=== PATIENT | female | born 1975 | race Hispanic/Latino ===

== ENCOUNTER 2016-06-02 06:47 | Emergency (ER) | payer OTHER ==
[2016-06-02 07:47] LABS: MEAN CORPUSCULAR HEMOGLOBIN 29.2 pg (27.0-33.0); MEAN CORPUSCULAR HGB CONC 33.7 g/dl (32.0-36.5); MEAN CORPUSCULAR VOLUME 86.5 fl (80.0-96.0); RED CELL DISTRIBUTION WIDTH 12.5 % (11.5-14.5); WHITE BLOOD COUNT 5.9 K/mm3 (4.0-10.0)
--- NOTE | 2016-06-02 08:41 | REP ---
Emergency first trimester OB sonography: History: Vaginal bleeding. Findings: Transvaginal and transabdominal scanning demonstrates a mildly enlarged uterus with overall dimensions of 11.3 x 5.7 x 6.4 cm. Endometrial echo is 1.3 cm thick. There is an irregular cystic area in the lower uterine segment endometrium adjacent to what appears to be a scar in the lower uterine segment. This may be an abnormal gestational sac. It measures 6 x 11 x 11 mm. It does not have an echogenic margin. There is no other evidence of intrauterine gestation. Neither ovary could be identified transabdominally or trans vaginally. No free fluid is seen in the cul-de-sac. Impression: Nonspecific sonographic findings. No definite intrauterine gestation. No adnexal mass or free fluid seen. Clinical and possibly sonographic followup is advised. Signed by Roland Mcdermott MD 06/02/2016 08:42 A
--- NOTE | 2016-06-02 09:06 | EDDOCDS ---
Nurse's Notes [facility] Name: Nikki Tomas Age: 40 yrs Sex: Female : 1975 Arrival Date: 06/02/2016 Time: 06:47 Bed Ultrasound Private MD: Diagnosis: Threatened Presentation: 06/02 07:01 Presenting complaint: Patient states: Abdominal cramping yesterday, this morning small ck1 amount of bleeding with small clot. Reports having "spotty brown discharge" since finding out she was . Risk factors: The patient reports no loss of conciousness prior to arrival. This patient has not had a hysterectomy. This patient has not begun menopause. Adult Sepsis Screening: The patient does not have new or worsening altered mentation. Patient's respiratory rate is less than 22. Systolic blood pressure is greater than 100. Patient has a qSOFA score of 0- Negative Sepsis Screen. Suicide/Homicide risk assessment- the patient denies having any suicidal and/or homicidal ideations and does not present with any other emotional, behavioral or mental health complaints. Status: The patient is a dependent. Transition of care: patient was not received from another setting of care. 07:01 Acuity: WILSON Level 3 ck1 07:01 Method Of Arrival: Walkin/Carried/Asstd ck1 Triage Assessment: 07:07 General: Appears in no apparent distress, comfortable, Behavior is appropriate for age, ck1 cooperative. Pain: Location: pelvis Pain currently is 6 out of 10 on a pain scale. Quality of pain is described as crampy. HIV screening NA for this visit Offered previously. Respiratory: Respiratory effort is unlabored, Respiratory pattern is regular, symmetrical. : Reports vaginal bleeding that is bright red with clots. Derm: Skin is pink, warm & dry. 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 multivitamin Oral tab 2 tab daily 2. folic acid 400 mcg Oral tab 1 tab once daily - PMHx: none; - PSHx: Cesearean Section; Hernia repair; Carpal Tunnel Repair- Bilateral; right elbow surgery; left arm surgery; cone on cervix; - Social history: Smoking status: Patient states was never smoker of tobacco. No barriers to communication noted, The patient speaks fluent Kiswahili, Speaks appropriately for age. - Family history: Not pertinent. - : The pt / caregiver states he / she is not on anticoagulants. Home medication list is obtained from the patient. - Exposure Risk Screening:: None identified. Screenin:02 Screening information is obtained from the patient. Fall risk: No risks identified. jmk Assistance ADL's: requires no assistance with activities of daily living. Abuse/DV Screen: The patient / caregiver reports he/she is: not in a situation that causes fear, pain or injury. Nutritional screening: No deficits noted. Advance Directives: Currently, there is no health care proxy. There is no active DNR order. There is no living will. There is no Power of Retail Business Manager. Advance directive information has not previously been placed in an [facility] medical record. home support is adequate. Assessment: 07:40 General: Appears in no apparent distress, skin warm and dry color satisfactory. Moist jmk pink oral mucosa. abd soft and no distended with bowel sounds present x 4. 09:02 General: Appears unchanged since arrival. states still with spotting. encouraged jmk vaginal rest. receptive to discharge. Vital Signs: 07:02 BP 118 / 60; Pulse 60; Resp 18; Temp 97.2(O); Pulse Ox 99% on R/A; Weight 80.74 kg (R); ck1 Height 5 ft. 4 in. (162.56 cm) (R); Pain 6/10; 09:02 BP 110 / 60; Pulse 64; Resp 16; Temp 97.3; jmk 07:02 Body Mass Index 30.55 (80.74 kg, 162.56 cm) ck Vitals: 07:02 Log In Time: June 02, 2016 at 06:48. 1 ED Course: 06:48 Patient visited by Soco Rubio Reg. hs2 06:48 Patient moved to Waiting hs2 07:00 Patient moved to Triage 1 ck1 07:02 Triage Initiated ck1 07:09 Patient moved to I3 / M3 ck1 07:15 Gume Kaplan PA is PHCP. btw 07:16 Luis E Wilde MD is Attending Physician. btw 07:16 Patient visited by Gume Kaplan PA. btw 07:32 Complete Blood Count Sent. jmk 07:32 Hcg, Serum Quantitative Sent. jmk 07:32 Rh Only Sent. jmk 07:32 Urinalysis Sent. jmk 07:53 Patient moved to Ultrasound cmb 08:49 [place], OB is Referral Physician. btw 09:01 US 1st trimester Returned. EDMS 09:02 The patient / caregiver is instructed regarding the plan of care and ED course. jmk 09:02 No IV's were initiated during this patient's visit. No procedures done that require k assistance. Order Results: Lab Order: Complete Blood Count; SPEC'M 06/02/16 07:37 Test: WHITE BLOOD COUNT; Value: 5.9; Range: 4.0-10.0; Units: K/mm3; Status: F Test: RED BLOOD COUNT; Value: 4.44; Range: 4.00-5.40; Units: M/mm3; Status: F Test: HEMOGLOBIN; Value: 12.9; Range: 12.0-16.0; Units: g/dl; Status: F Test: HEMATOCRIT; Value: 38.4; Range: 36.0-47.0; Units: %; Status: F Test: MEAN CORPUSCULAR VOLUME; Value: 86.5; Range: 80.0-96.0; Units: fl; Status: F Test: MEAN CORPUSCULAR HEMOGLOBIN; Value: 29.2; Range: 27.0-33.0; Units: pg; Status: F Test: MEAN CORPUSCULAR HGB CONC; Value: 33.7; Range: 32.0-36.5; Units: g/dl; Status: F Test: RED CELL DISTRIBUTION WIDTH; Value: 12.5; Range: 11.5-14.5; Units: %; Status: F Test: PLATELET COUNT, AUTOMATED; Value: 158; Range: 150-450; Units: k/mm3; Status: F Lab Order: Hcg, Serum Quantitative; SPEC'M 06/02/16 07:37 Test: HCG, SERUM QUANTITATIVE; Value: 4090; Units: MIU/ML; Status: F Test Note: ; GESTATIONAL AGE APPROXIMATE HCG RANGE (MIU/ML) 0.2-1 WEEK 5-50 1-2 WEEKS 50-500 2-3 WEEKS 100-5,000 3-4 WEEKS 500-10,000 4-5 WEEKS 1,000-50,000 5-6 WEEKS 10,000-100,000 6-8 WEEKS 15,000-200,000 2-3 MONTHS 10,000-100,000 NON FEMALES LESS THAN 3.0 Patient samples may contain human heterophilic antibodies that could react with immunoassays to give falsely elevated or depressed results. This assay has been designed to minimize interference from heterophilic antibodies. Elevated hCG levels have also been associated with trophoblastic disease and nontrophoblastic neoplasms. The possibility of having these diseases should be considered before a diagnosis of is made. This test is not intended for use as a surrogate marker for aiding in the diagnosis or monitoring the treatment of cancer patients. [employer] methodology. Lab Order: Rh Only; SPEC'M 06/02/16 07:37 Test: RH; Value: POSITIVE; Status: F Lab Order: Urinalysis; SPEC' 06/02/16 07:39 Test: APPEARANCE, URINE; Value: CLEAR; Range: CLEAR; Status: F Test: COLOR, URINE; Value: YELLOW; Range: YELLOW; Status: F Test: PH,URINE; Value: 6.0; Range: 5.0-9.0; Units: UNITS; Status: F Test: SPECIFIC GRAVITY URINE AUTO; Value: 1.015; Range: 1.002-1.035; Status: F Test: PROTEIN, URINE AUTO; Value: NEGATIVE; Range: NEGATIVE; Units: mg/dL; Status: F Test: GLUCOSE, URINE (UA) AUTO; Value: NEGATIVE; Range: NEGATIVE; Units: mg/dL; Status: F Test: KETONE, URINE AUTO; Value: NEGATIVE; Range: NEGATIVE; Units: mg/dL; Status: F Test: UROBILINOGEN, URINE AUTO; Value: 0.2; Range: 0.0-2.0; Units: mg/dL; Status: F Test: BILIRUBIN, URINE AUTO; Value: NEGATIVE; Range: NEGATIVE; Status: F Test: NITRITE, URINE AUTO; Value: NEGATIVE; Range: NEGATIVE; Status: F Test: LEUKOCYTE ESTERASE, URINE AUTO; Value: NEGATIVE; Range: NEGATIVE; Status: F Test: BLOOD, URINE BLOOD; Value: 2+; Range: NEGATIVE; Abnormal: Above high normal; Status: F Test: WBC, URINE AUTO; Value: 1; Range: 0-3; Units: /HPF; Status: F Test: RBC, URINE AUTO; Value: 2; Range: 0-3; Units: /HPF; Status: F Test: BACTERIA, URINE AUTO; Value: 1+; Range: NEGATIVE; Abnormal: Above high normal; Status: F Test: SQUAMOUS EPITHELIAL CELL UR AU; Value: 0; Range: 0-6; Units: /HPF; Status: F Test: MUCUS, URINE; Value: SMALL; Range: NEGATIVE; Status: F Test: HYALINE CAST, URINE AUTO; Value: 0; Range: 0-1; Units: /LPF; Status: F Radiology Order: US 1st trimester Test: US 1st trimester REASON FOR EXAMINATION: Bleeding; Emergency first trimester OB sonography:; ; History: Vaginal bleeding.; ; Findings: Transvaginal and transabdominal scanning demonstrates a mildly; enlarged uterus with overall dimensions of 11.3 x 5.7 x 6.4 cm. Endometrial echo; is 1.3 cm thick. There is an irregular cystic area in the lower uterine segment; endometrium adjacent to what appears to be a scar in the lower uterine; segment. This may be an abnormal gestational sac. It measures 6 x 11 x 11 mm.; It does not have an echogenic margin. There is no other evidence of intrauterine; gestation.; ; Neither ovary could be identified transabdominally or trans vaginally. No free; fluid is seen in the cul-de-sac.; ; Impression:; ; Nonspecific sonographic findings. No definite intrauterine gestation. No; adnexal mass or free fluid seen. Clinical and possibly sonographic followup is; advised.; ; ; Signed by; Roland Mcdermott MD 06/02/2016 08:42 A; Outcome: 08:49 Discharge ordered by Provider. btw 09:02 Discharge Assessment: Patient awake, alert and oriented x 3. No cognitive and/or jmk functional deficits noted. Patient verbalized understanding of disposition instructions. The following High Risk Discharge criteria are identified: None. Discharged to home ambulatory. Condition: good. Discharge instructions given to patient, Instructed on discharge instructions, follow up and referral plans. medication usage, Demonstrated understanding of instructions, medications, Pt was receptive of discharge instructions/ teaching. Ultrasound Study completed. Property :Personal belongings accompany Pt. 09:05 Patient left the ED. timothy Signatures: Dispatcher [employer] EDMarbin Gutiérrezan,RN RN jmk Corrine Whittington RN RN ck1 Gume Kaplan PA PA btw [place], [place] cmb Soco Rubio, Reg Reg hs2 MTDD
--- NOTE | 2016-06-02 09:06 | EDDOCDS ---
Physician Documentation [facility] Name: Nikki Tomas Age: 40 yrs Sex: Female : 1975 Arrival Date: 06/02/2016 Time: 06:47 Bed Ultrasound Private MD: Disposition: 06/02/16 08:49 Discharged to Home/Self Care. Impression: Threatened . - Condition is Stable. - Discharge Instructions: Threatened Miscarriage, [id number]. - Medication Reconciliation, Local Pharmacy Hours form. - Follow up: Libzeth Reyna OB; When: 1 - 2 days; Reason: Further diagnostic work-up, Recheck today's complaints, Continuance of care. - Problem is new. - Symptoms are unchanged. Historical: - Allergies: Aspirin; TETRACYCLINES; Ibuprofen; - Home Meds: 1. multivitamin Oral tab 2 tab daily 2. folic acid 400 mcg Oral tab 1 tab once daily - PMHx: none; - PSHx: Cesearean Section; Hernia repair; Carpal Tunnel Repair- Bilateral; right elbow surgery; left arm surgery; cone on cervix; - Social history: Smoking status: Patient states was never smoker of tobacco. No barriers to communication noted, The patient speaks fluent Brazilian, Speaks appropriately for age. - Family history: Not pertinent. - : The pt / caregiver states he / she is not on anticoagulants. Home medication list is obtained from the patient. - Exposure Risk Screening:: None identified. 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 4 in. (162.56 cm) (R); Pain 6/10; 09:02 BP 110 / 60; Pulse 64; Resp 16; Temp 97.3; jmk 07:02 Body Mass Index 30.55 (80.74 kg, 162.56 cm) ck1 MDM: 07:25 Complete Blood Count Ordered. EDMS 07:25 Hcg, Serum Quantitative Ordered. EDMS 07:25 Rh Only Ordered. EDMS 07:25 Urinalysis Ordered. EDMS 07:25 Urine Culture Ordered. EDMS 07:25 US 1st trimester Ordered. EDMS 07:48 TRANSVAGINAL US Ordered. EDMS 08:16 Urinalysis Reviewed. btw 08:16 Complete Blood Count Reviewed. btw 08:16 Hcg, Serum Quantitative Reviewed. btw 08:16 Rh Only Reviewed. btw 08:40 Financial registration complete. mm15 Signatures: Dispatcher [employer] EDKamaljit Gutiérrez RN RN jmk Kim-Ashcraft, Connie, RN RN ck1 Gume Kaplan PA PA btw Keiko Sanders mm15 MTDD
--- NOTE | 2016-06-04 10:06 | EDDOCDS ---
Physician Documentation [facility] Name: Nikki Tomas Age: 40 yrs Sex: Female : 1975 Arrival Date: 06/02/2016 Time: 06:47 Bed Ultrasound Private MD: Disposition: 06/02/16 08:49 Discharged to Home/Self Care. Impression: Threatened . - Condition is Stable. - Discharge Instructions: Threatened Miscarriage, [id number]. - Medication Reconciliation, Local Pharmacy Hours form. - Follow up: Lizbeth Reyna OB; When: 1 - 2 days; Reason: Further diagnostic work-up, Recheck today's complaints, Continuance of care. - Problem is new. - Symptoms are unchanged. Historical: - Allergies: Aspirin; TETRACYCLINES; Ibuprofen; - Home Meds: 1. multivitamin Oral tab 2 tab daily 2. folic acid 400 mcg Oral tab 1 tab once daily - PMHx: none; - PSHx: Cesearean Section; Hernia repair; Carpal Tunnel Repair- Bilateral; right elbow surgery; left arm surgery; cone on cervix; - Social history: Smoking status: Patient states was never smoker of tobacco. No barriers to communication noted, The patient speaks fluent Burundian, Speaks appropriately for age. - Family history: Not pertinent. - : The pt / caregiver states he / she is not on anticoagulants. Home medication list is obtained from the patient. - Exposure Risk Screening:: None identified. 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 4 in. (162.56 cm) (R); Pain 6/10; 09:02 BP 110 / 60; Pulse 64; Resp 16; Temp 97.3; jmk 07:02 Body Mass Index 30.55 (80.74 kg, 162.56 cm) ck1 MDM: 07:25 Complete Blood Count Ordered. EDMS 07:25 Hcg, Serum Quantitative Ordered. EDMS 07:25 Rh Only Ordered. EDMS 07:25 Urinalysis Ordered. EDMS 07:25 Urine Culture Ordered. EDMS 07:25 US 1st trimester Ordered. EDMS 07:48 TRANSVAGINAL US Ordered. EDMS 08:16 Urinalysis Reviewed. btw 08:16 Complete Blood Count Reviewed. btw 08:16 Hcg, Serum Quantitative Reviewed. btw 08:16 Rh Only Reviewed. btw 08:40 Financial registration complete. mm15 09:24 [facility] Payment Agreement was scanned into [employer] and attached to record. mm15 06/03 12:19 T-Sheet-- Draft Copy was scanned into [employer] and attached to record. gb Signatures: Dispatcher [employer] Kamaljit Brito,RN RN Tiarra Jimenez, Reg Reg gb Corrine WhittingtonRN RN ck1 Gume Kaplan PA PA btw Keiko Sanders 15 The chart was reviewed and I authenticate all verbal orders and agree with the evaluation and treatment provided.Attachments: 06/02 09:24 [facility] Payment Agreement mm15 06/03 12:19 T-Sheet-- Draft Copy gb Chart Complete MTDD
--- NOTE | 2016-06-04 10:06 | EDDOCDS ---
Nurse's Notes [facility] Name: Nikki Tomas Age: 40 yrs Sex: Female : 1975 Arrival Date: 06/02/2016 Time: 06:47 Bed Ultrasound Private MD: Diagnosis: Threatened Presentation: 06/02 07:01 Presenting complaint: Patient states: Abdominal cramping yesterday, this morning small ck1 amount of bleeding with small clot. Reports having "spotty brown discharge" since finding out she was . Risk factors: The patient reports no loss of conciousness prior to arrival. This patient has not had a hysterectomy. This patient has not begun menopause. Adult Sepsis Screening: The patient does not have new or worsening altered mentation. Patient's respiratory rate is less than 22. Systolic blood pressure is greater than 100. Patient has a qSOFA score of 0- Negative Sepsis Screen. Suicide/Homicide risk assessment- the patient denies having any suicidal and/or homicidal ideations and does not present with any other emotional, behavioral or mental health complaints. Status: The patient is a dependent. Transition of care: patient was not received from another setting of care. 07:01 Acuity: WILSON Level 3 ck1 07:01 Method Of Arrival: Walkin/Carried/Asstd ck1 Triage Assessment: 07:07 General: Appears in no apparent distress, comfortable, Behavior is appropriate for age, ck1 cooperative. Pain: Location: pelvis Pain currently is 6 out of 10 on a pain scale. Quality of pain is described as crampy. HIV screening NA for this visit Offered previously. Respiratory: Respiratory effort is unlabored, Respiratory pattern is regular, symmetrical. : Reports vaginal bleeding that is bright red with clots. Derm: Skin is pink, warm & dry. 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 multivitamin Oral tab 2 tab daily 2. folic acid 400 mcg Oral tab 1 tab once daily - PMHx: none; - PSHx: Cesearean Section; Hernia repair; Carpal Tunnel Repair- Bilateral; right elbow surgery; left arm surgery; cone on cervix; - Social history: Smoking status: Patient states was never smoker of tobacco. No barriers to communication noted, The patient speaks fluent Albanian, Speaks appropriately for age. - Family history: Not pertinent. - : The pt / caregiver states he / she is not on anticoagulants. Home medication list is obtained from the patient. - Exposure Risk Screening:: None identified. Screenin:02 Screening information is obtained from the patient. Fall risk: No risks identified. jmk Assistance ADL's: requires no assistance with activities of daily living. Abuse/DV Screen: The patient / caregiver reports he/she is: not in a situation that causes fear, pain or injury. Nutritional screening: No deficits noted. Advance Directives: Currently, there is no health care proxy. There is no active DNR order. There is no living will. There is no Power of Financial Health Counselor. Advance directive information has not previously been placed in an [facility] medical record. home support is adequate. Assessment: 07:40 General: Appears in no apparent distress, skin warm and dry color satisfactory. Moist jmk pink oral mucosa. abd soft and no distended with bowel sounds present x 4. 09:02 General: Appears unchanged since arrival. states still with spotting. encouraged jmk vaginal rest. receptive to discharge. Vital Signs: 07:02 BP 118 / 60; Pulse 60; Resp 18; Temp 97.2(O); Pulse Ox 99% on R/A; Weight 80.74 kg (R); ck1 Height 5 ft. 4 in. (162.56 cm) (R); Pain 6/10; 09:02 BP 110 / 60; Pulse 64; Resp 16; Temp 97.3; jmk 07:02 Body Mass Index 30.55 (80.74 kg, 162.56 cm) ck Vitals: 07:02 Log In Time: June 02, 2016 at 06:48. 1 ED Course: 06:48 Patient visited by Soco Rubio Reg. hs2 06:48 Patient moved to Waiting hs2 07:00 Patient moved to Triage 1 ck1 07:02 Triage Initiated ck1 07:09 Patient moved to I3 / M3 ck1 07:15 Gume Kaplan PA is PHCP. btw 07:16 Luis E Wilde MD is Attending Physician. btw 07:16 Patient visited by Gume Kaplan PA. btw 07:32 Complete Blood Count Sent. jmk 07:32 Hcg, Serum Quantitative Sent. jmk 07:32 Rh Only Sent. jmk 07:32 Urinalysis Sent. jmk 07:53 Patient moved to Ultrasound cmb 08:49 [place], OB is Referral Physician. btw 09:01 US 1st trimester Returned. EDMS 09:02 The patient / caregiver is instructed regarding the plan of care and ED course. jmk 09:02 No IV's were initiated during this patient's visit. No procedures done that require jmk assistance. 09:24 [facility] [place] was scanned into [employer] and attached to record. mm15 10:14 Patient name changed from Nikki\\S\\\\S\\Riveramarcano\\S\\ to Nikki\\S\\ \\S\\Riveramarcano. EDMS 02/02 12:19 T-Sheet-- Draft Copy was scanned into [employer] and attached to record. gb Order Results: Lab Order: Complete Blood Count; SPEC'M 06/02/16 07:37 Test: WHITE BLOOD COUNT; Value: 5.9; Range: 4.0-10.0; Units: K/mm3; Status: F Test: RED BLOOD COUNT; Value: 4.44; Range: 4.00-5.40; Units: M/mm3; Status: F Test: HEMOGLOBIN; Value: 12.9; Range: 12.0-16.0; Units: g/dl; Status: F Test: HEMATOCRIT; Value: 38.4; Range: 36.0-47.0; Units: %; Status: F Test: MEAN CORPUSCULAR VOLUME; Value: 86.5; Range: 80.0-96.0; Units: fl; Status: F Test: MEAN CORPUSCULAR HEMOGLOBIN; Value: 29.2; Range: 27.0-33.0; Units: pg; Status: F Test: MEAN CORPUSCULAR HGB CONC; Value: 33.7; Range: 32.0-36.5; Units: g/dl; Status: F Test: RED CELL DISTRIBUTION WIDTH; Value: 12.5; Range: 11.5-14.5; Units: %; Status: F Test: PLATELET COUNT, AUTOMATED; Value: 158; Range: 150-450; Units: k/mm3; Status: F Lab Order: Hcg, Serum Quantitative; SPEC'M 06/02/16 07:37 Test: HCG, SERUM QUANTITATIVE; Value: 4090; Units: MIU/ML; Status: F Test Note: ; GESTATIONAL AGE APPROXIMATE HCG RANGE (MIU/ML) 0.2-1 WEEK 5-50 1-2 WEEKS 50-500 2-3 WEEKS 100-5,000 3-4 WEEKS 500-10,000 4-5 WEEKS 1,000-50,000 5-6 WEEKS 10,000-100,000 6-8 WEEKS 15,000-200,000 2-3 MONTHS 10,000-100,000 NON FEMALES LESS THAN 3.0 Patient samples may contain human heterophilic antibodies that could react with immunoassays to give falsely elevated or depressed results. This assay has been designed to minimize interference from heterophilic antibodies. Elevated hCG levels have also been associated with trophoblastic disease and nontrophoblastic neoplasms. The possibility of having these diseases should be considered before a diagnosis of is made. This test is not intended for use as a surrogate marker for aiding in the diagnosis or monitoring the treatment of cancer patients. Siemens Gingr methodology. Lab Order: Rh Only; SPEC'M 06/02/16 07:37 Test: RH; Value: POSITIVE; Status: F Lab Order: Urinalysis; SPEC'M 06/02/16 07:39 Test: APPEARANCE, URINE; Value: CLEAR; Range: CLEAR; Status: F Test: COLOR, URINE; Value: YELLOW; Range: YELLOW; Status: F Test: PH,URINE; Value: 6.0; Range: 5.0-9.0; Units: UNITS; Status: F Test: SPECIFIC GRAVITY URINE AUTO; Value: 1.015; Range: 1.002-1.035; Status: F Test: PROTEIN, URINE AUTO; Value: NEGATIVE; Range: NEGATIVE; Units: mg/dL; Status: F Test: GLUCOSE, URINE (UA) AUTO; Value: NEGATIVE; Range: NEGATIVE; Units: mg/dL; Status: F Test: KETONE, URINE AUTO; Value: NEGATIVE; Range: NEGATIVE; Units: mg/dL; Status: F Test: UROBILINOGEN, URINE AUTO; Value: 0.2; Range: 0.0-2.0; Units: mg/dL; Status: F Test: BILIRUBIN, URINE AUTO; Value: NEGATIVE; Range: NEGATIVE; Status: F Test: NITRITE, URINE AUTO; Value: NEGATIVE; Range: NEGATIVE; Status: F Test: LEUKOCYTE ESTERASE, URINE AUTO; Value: NEGATIVE; Range: NEGATIVE; Status: F Test: BLOOD, URINE BLOOD; Value: 2+; Range: NEGATIVE; Abnormal: Above high normal; Status: F Test: WBC, URINE AUTO; Value: 1; Range: 0-3; Units: /HPF; Status: F Test: RBC, URINE AUTO; Value: 2; Range: 0-3; Units: /HPF; Status: F Test: BACTERIA, URINE AUTO; Value: 1+; Range: NEGATIVE; Abnormal: Above high normal; Status: F Test: SQUAMOUS EPITHELIAL CELL UR AU; Value: 0; Range: 0-6; Units: /HPF; Status: F Test: MUCUS, URINE; Value: SMALL; Range: NEGATIVE; Status: F Test: HYALINE CAST, URINE AUTO; Value: 0; Range: 0-1; Units: /LPF; Status: F Lab Order: Urine Culture; SPEC'M 06/02/16 07:39 Test: URINE CULTURE; Value: <EXTERNAL COMMENT eCWMed> FULL REPORT IN LAB NOTES (eCW and Medent).; Status: F Test: URINE CULTURE; Value: URINE CULTURE RESULT NO GROWTH; Status: F Radiology Order: US 1st trimester Test: US 1st trimester REASON FOR EXAMINATION: Bleeding; Emergency first trimester OB sonography:; ; History: Vaginal bleeding.; ; Findings: Transvaginal and transabdominal scanning demonstrates a mildly; enlarged uterus with overall dimensions of 11.3 x 5.7 x 6.4 cm. Endometrial echo; is 1.3 cm thick. There is an irregular cystic area in the lower uterine segment; endometrium adjacent to what appears to be a scar in the lower uterine; segment. This may be an abnormal gestational sac. It measures 6 x 11 x 11 mm.; It does not have an echogenic margin. There is no other evidence of intrauterine; gestation.; ; Neither ovary could be identified transabdominally or trans vaginally. No free; fluid is seen in the cul-de-sac.; ; Impression:; ; Nonspecific sonographic findings. No definite intrauterine gestation. No; adnexal mass or free fluid seen. Clinical and possibly sonographic followup is; advised.; ; ; Signed by; Roland Mcdermott MD 06/02/2016 08:42 A; Outcome: 06/02 08:49 Discharge ordered by Provider. btw 09:02 Discharge Assessment: Patient awake, alert and oriented x 3. No cognitive and/or jmk functional deficits noted. Patient verbalized understanding of disposition instructions. The following High Risk Discharge criteria are identified: None. Discharged to home ambulatory. Condition: good. Discharge instructions given to patient, Instructed on discharge instructions, follow up and referral plans. medication usage, Demonstrated understanding of instructions, medications, Pt was receptive of discharge instructions/ teaching. Ultrasound Study completed. Property :Personal belongings accompany Pt. 09:05 Patient left the ED. dora Signatures: Dispatcher [employer] EDMS Kamaljit Simmons,RN RN Tiarra Jimenez, Reg Reg gb Corrine WhittingtonRN RN ck1 Gume Kaplan PA PA btw [place], [place] cmb McGrath, Marlynn mm15 Soco Rubio, Reg Reg hs2 Chart Complete [facility]ITAL[facility]
--- NOTE | 2016-06-04 10:06 | EDDOCDS ---
Physician Documentation [facility] Name: Nikki Tomas Age: 40 yrs Sex: Female : 1975 Arrival Date: 06/02/2016 Time: 06:47 Bed Ultrasound Private MD: Disposition: 06/02/16 08:49 Discharged to Home/Self Care. Impression: Threatened . - Condition is Stable. - Discharge Instructions: Threatened Miscarriage, [id number]. - Medication Reconciliation, Local Pharmacy Hours form. - Follow up: Lizbeth Reyna OB; When: 1 - 2 days; Reason: Further diagnostic work-up, Recheck today's complaints, Continuance of care. - Problem is new. - Symptoms are unchanged. Historical: - Allergies: Aspirin; TETRACYCLINES; Ibuprofen; - Home Meds: 1. multivitamin Oral tab 2 tab daily 2. folic acid 400 mcg Oral tab 1 tab once daily - PMHx: none; - PSHx: Cesearean Section; Hernia repair; Carpal Tunnel Repair- Bilateral; right elbow surgery; left arm surgery; cone on cervix; - Social history: Smoking status: Patient states was never smoker of tobacco. No barriers to communication noted, The patient speaks fluent Czech, Speaks appropriately for age. - Family history: Not pertinent. - : The pt / caregiver states he / she is not on anticoagulants. Home medication list is obtained from the patient. - Exposure Risk Screening:: None identified. 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 4 in. (162.56 cm) (R); Pain 6/10; 09:02 BP 110 / 60; Pulse 64; Resp 16; Temp 97.3; jmk 07:02 Body Mass Index 30.55 (80.74 kg, 162.56 cm) ck1 MDM: 07:25 Complete Blood Count Ordered. EDMS 07:25 Hcg, Serum Quantitative Ordered. EDMS 07:25 Rh Only Ordered. EDMS 07:25 Urinalysis Ordered. EDMS 07:25 Urine Culture Ordered. EDMS 07:25 US 1st trimester Ordered. EDMS 07:48 TRANSVAGINAL US Ordered. EDMS 08:16 Urinalysis Reviewed. btw 08:16 Complete Blood Count Reviewed. btw 08:16 Hcg, Serum Quantitative Reviewed. btw 08:16 Rh Only Reviewed. btw 08:40 Financial registration complete. mm15 09:24 [facility] Payment Agreement was scanned into [employer] and attached to record. mm15 06/03 12:19 T-Sheet-- Draft Copy was scanned into [employer] and attached to record. gb Signatures: Dispatcher [employer] Kamaljit Brito,RN RN Tiarra Jimenez, Reg Reg gb Corrine WhittingtonRN RN ck1 Gume Kaplan PA PA btw Keiko Sanders 15 The chart was reviewed and I authenticate all verbal orders and agree with the evaluation and treatment provided.Attachments: 06/02 09:24 [facility] Payment Agreement mm15 06/03 12:19 T-Sheet-- Draft Copy gb Chart Complete MTDD
== END 2016-06-02 09:05 | disposition home or self-care (01) ==
LOC: M ED 06:47
DX: O20.0 Threatened abortion (principal); Z3A.00 Weeks of gestation of pregnancy not specified; Z88.6 Allergy status to analgesic agent; Z88.1 Allergy status to other antibiotic agents

== ENCOUNTER 2016-12-29 17:02 | Emergency (ER) | payer OTHER ==
[~2016-12-29] VITALS: Ht 162.6 cm; Wt 81.6 kg
[2016-12-29] MEDS ORDERED: CONC18TA14 PO (17:16)
[2016-12-29 17:46] LABS: MEAN CORPUSCULAR HEMOGLOBIN 30.2 pg (27.0-33.0); MEAN CORPUSCULAR HGB CONC 34.7 g/dl (32.0-36.5); MEAN CORPUSCULAR VOLUME 87.2 fl (80.0-96.0); RED CELL DISTRIBUTION WIDTH 12.4 % (11.5-14.5); WHITE BLOOD COUNT 6.1 K/mm3 (4.0-10.0)
--- NOTE | 2016-12-29 19:00 | REPUSA ---
HISTORY: VAGINAL BLEEDING, POS PREG TEST LMP 11/21/2016 . LMP: 11/21/16. Gestational age by LMP: 5 w eeks 3 days. TECHNIQUE: Transabdominal and transvaginal obstetrical ultrasound examination. FINDINGS: The uterus is anteverted and measures 10.4 x 5.4 x 6.0 cm. Endometrium measures 0.75 cm. Versus small cystic formation in the endometrium that may represent an early gestational sac measuring 4.9 cm which would correspond to a gestational age of 5 weeks, 2 day s, although no pole is identifiable. No heartbeat is identifiable at this time. Right and left ovaries are not visualized at this time. No extrauterine pathologic mass lesions or a bnormal fluid collections are seen at this time. IMPRESSION: 1. Suspected small gestational sac in the endometrium without pole or heartb eat identifiable at this time, with gestational sac measurement corresponding to gestational age of 5 weeks 2 days. Clinical correlation and follow-up is suggested as indicated to monitor and evaluate for viability and to rule out ectopic . 2. No extrauterine pathologic mass or abnormal fluid collection is identified in the pelvis at this time. .
[2016-12-29 19:13] VITALS: BP 129/79
== END 2016-12-29 19:51 | disposition home or self-care (01) ==
LOC: M ED 17:02
DX: O20.0 Threatened abortion (principal); O09.521 Supervision of elderly multigravida, first trimester; O34.219 Maternal care for unspecified type scar from previous cesarean delivery; Z3A.00 Weeks of gestation of pregnancy not specified; Z79.899 Other long term (current) drug therapy

== ENCOUNTER → 2016-12-31 | Outpatient (CLI) | payer OTHER ==
[~2016-12-31] MED LIST: CONC18TA14 PO
== END ==
LOC: M LAB 21:24
PROVIDERS: ATTEND Emergency Medicine
DX: O20.0 Threatened abortion (principal)